=== PATIENT | female | born 1970 | race Caucasian/White ===

== ENCOUNTER → 2024-06-10 | Emergency (ER) | payer MEDICAID ==
[~2024-06-10] VITALS: Ht 172.7 cm; Wt 74.8 kg
[~2024-06-10] MED LIST: ONDA4TAB5 PO; ONDANSETRON 4 MG/2 ML VIAL ONE
[2024-06-10 22:36] LABS: BASOPHILS % (AUTO) 0.3 % (0.0-2.0); EOSINOPHILS % (AUTO) 0.1 % (0.0-7.0); HEMATOCRIT 41.6 % (31.2-41.9); HEMOGLOBIN 14.2 g/dL (10.9-14.3); LYMPHOCYTES # (AUTO) 1.6 K/uL (0.8-4.8); MEAN CORPUSCULAR HEMOGLOBIN 28.9 uug (24.7-32.8); MEAN CORPUSCULAR HGB CONC 34 g/dL (32.3-35.6); MEAN CORPUSCULAR VOLUME 84.5 fL (75.5-95.3); MONOCYTES # (AUTO) 1.1 K/uL (0.1-1.30); MONOCYTES % (AUTO) 13.3 % (0.0-11.0); NEUTROPHILS # (AUTO) 5.5 K/uL (1.8-8.9); NEUTROPHILS % (AUTO) 67.3 % (38.5-71.5); PLATELET COUNT (AUTO) 257 K/uL (179-408); RED BLOOD CELL COUNT(AUTO) 4.93 MIL/uL (3.63-4.92); WHITE BLOOD COUNT (AUTO) 8.2 K/uL (3.8-11.8)
[2024-06-10] MEDS: IV NORMAL SALINE 1000 ML BAG IV ONE (22:41)
[2024-06-10] MEDS: ONDANSETRON 4 MG/2 ML VIAL IV ONE (22:43)
[2024-06-10 22:44] LABS: DIFFERENTIAL COMMENT 1
[2024-06-10 22:49] LABS: ALBUMIN 3.8 g/dL (3.4-5.0); BILIRUBIN,DIRECT 0.2 mg/dL (0.0-0.2); BILIRUBIN,TOTAL 1.1 mg/dL (0.2-1.0); CALCIUM 9.1 mg/dL (8.5-10.1); CREATININE 0.9 mg/dL (0.6-1.3); POTASSIUM 3.8 mmol/L (3.5-5.1); TOTAL PROTEIN, SERUM 8.8 g/dL (6.4-8.2)
[2024-06-10 23:50] VITALS: BP 134/80; TEMP 98; O2SAT 98
== END | disposition home or self-care (01) ==
LOC: ER 22:10
DX: J11.1 Influenza due to unidentified influenza virus with other respiratory manifestations (principal); R11.10 Vomiting, unspecified; R07.89 Other chest pain
CPT/HCPCS: 99285; 96374; 71045; 80076; 80048; 85025; 36415; 93005; J2405; J7040; A4606; A4663